=== PATIENT | male | born 1955 | race Caucasian/White ===

== ENCOUNTER 2022-03-11 11:35 | Outpatient (CLI) | payer MEDICARE, SELFPAY ==
[2022-03-11 11:41] VITALS: BMI 29.5
--- NOTE | 2022-03-11 11:41 | ECG_ITS ---
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 Interpretive Statements NAME OF STUDY: TREADMILL STRESS TEST INDICATION: Chest Pain, PROCEDURE: The baseline electrocardiogram showed normal sinus rhythm with normal ST-Ts normal CA and QRS duration. Possible old inferior wall IL.. At the baseline, the patient's blood pressure was 127/71 mm Hg with a heart rate of 72. The patient exercised for 5 minutes and 59 seconds on a standard Kevin protocol. Patient attained a maximum heart rate of 168 beats per minute(109% of the maximum predicted heart rate) with a blood pressure at the peak exercise of 177/92 mm Hg. the EKG during the second stage of the protocol showed episodes of nonsustained wide-complex tachycardias. The EKG at the peak exercise revealed wide-complex tachycardia suggesting ventricular tachycardia. The rhythm spontaneously converted to sinus tachycardia. Patient did not have any chest pain or any significant arrhythmis with the exercise During the recovery phase, there were no new changes. The rhythm gradually returned to normal sinus. Blood pressure at the end of the recovery phase was 153/85 mm Hg with a heart rate of 81 per minute. CONCLUSION: 1. Abnormal EKG response to treadmill exercise -exercise-induced wide-complex tachycardia, suggesting ventricular tachycardia. No arrhythmia related hemodynamic compromise. 2. No exercise-induced chest pain or syncopal episode 3. Slightly impaired exercise tolerance, attained a maximum of 7.0 METs Consider myocardial perfusion imaging or cardiac catheterization to further evaluate his symptoms Electronically Signed On 03-12-2022 8:15:19 CDT by Giuseppe Lauren M.D. [email or web address]
[2022-03-11 12:53] VITALS: BP 154/85; PULSE 90
== END 2022-03-11 11:36 | disposition home or self-care (01) ==
LOC: CDL 11:36
PROVIDERS: PCP Family Medicine; Visit Provider Family Medicine
DX: R07.9 Chest pain, unspecified (principal)
CPT/HCPCS: 93017

== ENCOUNTER → 2022-05-08 13:54 | Outpatient (BNVA) | payer MEDICARE, SELFPAY | PROVIDERS: PCP Family Medicine; Visit Provider Internal Medicine | DX: I10 Essential (primary) hypertension (principal); R94.39 Abnormal result of other cardiovascular function study; I47.2 Ventricular tachycardia; I49.1 Atrial premature depolarization; I49.3 Ventricular premature depolarization | CPT/HCPCS: 93005; 93229; 99204 ==

== ENCOUNTER 2022-05-28 06:11 | Outpatient (CLI) | payer MEDICARE, SELFPAY ==
--- NOTE | 2022-05-28 06:15 | USCV_ITS ---
Benjamin Pearson Age: 66 Gender: M : 1955 Exam Date: 05/28/2022 06:33 Ordering Phys: Shashi West M.D ([email or web address]) Technologist: Exam Location: [facility] [place] Indication: chest pain BP: 124 / 83 HR: 55 Rhythm: Sinus Technical Quality: Adequate MEASUREMENTS (Male / Female) Normal Values 2D ECHO LV Diastolic Diameter PLAX 3.2 cm 4.2 - 5.9 / 3.9 - 5.3 cm LV Systolic Diameter PLAX 2.8 cm IVS Diastolic Thickness 1.0 cm 0.6 - 1.0 / 0.6 - 0.9 cm IVS Systolic Thickness 1.5 cm LVPW Diastolic Thickness 1.1 cm 0.6 - 1.0 / 0.6 - 0.9 cm LVPW Systolic Thickness 1.2 cm LVOT Diameter 2.0 cm LV Ejection Fraction 2D Teich 9.6 % LV Ejection Fraction MOD 2C 43.7 % LV Ejection Fraction 2C AL 44.9 % LA Diameter 3.3 cm Aorta at Sinotubular Diameter 3.6 cm IVC Diameter 1.9 cm M-MODE Aortic Annulus Diameter 3.2 cm LA Ao Ratio MM 1.1 MV E Point Septal Separation 1.4 cm DOPPLER AV Peak Velocity 131.0 cm/s LVOT Peak Velocity 86.0 cm/s AV Area Cont Eq vti 2.3 cm squared AV Area Cont Eq pk 2.1 cm squared MV Area PHT 5.0 cm squared Mitral E to A Ratio 1.3 MV E' Velocity 45.0 cm/s Mitral E to MV E' Ratio 11.5 Mitral E to LV E' Lateral Ratio 11.5 Mitral E to LV E' Septal Ratio 11.7 TR Peak Velocity 151.0 cm/s TR Peak Gradient 9.1 mmHg TV Peak E Velocity 83.0 cm/s Right Atrial Pressure 3.0 mmHg Pulmonary Artery Systolic Pressu 12.1 mmHg PV Peak Velocity 104.0 cm/s FINDINGS Left Ventricle Normal left ventricular size. LV systolic function is normal with EF of 50-55%. No regional wall motion abnormalities. Right Ventricle The right ventricle is normal in size and function. Right Atrium The right atrium is normal in size. Left Atrium The left atrium is normal in size. Mitral Valve Structurally normal mitral valve without significant stenosis or prolapse. There is no mitral regurgitation. Aortic Valve Structurally normal aortic valve without significant sclerosis or stenosis. There is no aortic regurgitation. Tricuspid Valve Structurally normal tricuspid valve without significant stenosis. Trace tricuspid regurgitation. Insufficient TR jet to calculate RVSP Pulmonic Valve Not well-visualized Pericardium Normal pericardium without effusion. Aorta Normal ascending aorta dimension. IVC CONCLUSIONS LV systolic function is normal with EF 50 to 55%. Trace tricuspid regurgitation. No comparison studies are available Shashi West MD (Electronically Signed) Final Date: 06 June 2022 10:55 S
== END 2022-05-28 06:12 | disposition home or self-care (01) ==
PROVIDERS: PCP Family Medicine; Visit Provider Internal Medicine
DX: I07.1 Rheumatic tricuspid insufficiency (principal); R06.02 Shortness of breath
CPT/HCPCS: 93306

== ENCOUNTER 2022-05-30 07:12 | Outpatient (CLI) | payer MEDICARE, SELFPAY ==
[2022-05-30 07:29] LABS: Basophils # 0.1 10^3/uL (0.0-0.1); Basophils % 1.7 %; Eosinophils # 0.2 10^3/uL (0.0-0.8); Eosinophils % 3.3 %; Hematocrit 46.6 % (42.0-52.0); Hemoglobin 16.7 g/dL (11.7-16.6); Lymphocytes # 2.3 10^3/uL (0.8-4.8); Lymphocytes % 32.9 %; Mean Corpuscular HGB Conc 35.8 g/dL (30.0-36.0); Mean Corpuscular Hemoglobin 32.7 pg (28.0-34.0); Mean Corpuscular Volume 91.2 fl (80-94); Mean Platelet Volume 10.3 fL (7.4-10.4); Monocytes # 0.6 10^3/uL (0.2-0.9); Monocytes % 9.3 %; Neutrophils # 3.63 10^3/uL (1.8-7.7); Neutrophils % 52.5 %; Nucleated Red Blood Cells % 0 %; Platelet Count 208 10^3/cmm (130-400); Red Blood Count 5.11 10^6/uL (4.1-5.3); Red Cell Distribution Width 13.2 % (12.1-15.1); White Blood Count 6.9 10^3/uL (4.0-10.0)
[2022-05-30 07:40] LABS: Prothrombin Time (Patient) 13.5 Seconds (12.0-15.1)
[2022-05-30 10:00] LABS: Anion Gap 13.2 (5-19); Blood Urea Nitrogen 8 mg/dL (8-23); Calcium 9.4 mg/dL (8.5-10.5); Carbon Dioxide 29 mmol/L (22-29); Chloride 102 mmol/L (98-107); Glomerular Filtration Rate 96.7 mL/min (90-130); Glucose 116 mg/dL (65-115); Osmolality Calculated 289 mOsm/kg (285-295); Potassium 4.2 mmol/L (3.5-5.1); Sodium 140 mmol/L (136-145)
== END 2022-05-30 07:13 | disposition home or self-care (01) ==
PROVIDERS: PCP Family Medicine; Visit Provider Internal Medicine
DX: R58 Hemorrhage, not elsewhere classified (principal); I10 Essential (primary) hypertension
CPT/HCPCS: 36415; 80048; 85025; 85610

== ENCOUNTER 2022-05-31 06:00 | Outpatient (CLI) | payer MEDICARE, SELFPAY ==
[2022-05-31] VITALS (35 sets, daily range): BP systolic 112–160; BP diastolic 78–111; PULSE 64–85; RESP 7–24; TEMP 36.7; O2SAT 91–96; BMI 30.8
[2022-05-31] MEDS: diphenhydrAMINE 50 mg Capsule PO (06:10)
--- NOTE | 2022-05-31 07:00 | XACV_ITS ---
Exam Room: 2 Ht: 180 cm Wt: 100 kg BSA: 2.27 m2 Gender: Male : 1955 Any Known Allergies: Penicillins Exam Priority: Routine Procedure(s): Procedure Description: Diagnostic procedure Procedure Description: Left Heart Catheterization Procedure Description: Coronary Angiography Procedure Description: Pressure Wire Diagnostic Cath Status: Elective Diagnostic Findings * Left Main has no disease. * Circumflex has no disease. * Mid Left Anterior Descending: mild 40% stenosis, TRISTA: 3 flow. * Mid Right Coronary Artery: moderate 50% stenosis, TRISTA: 3 flow. * Coronary angiography shows right dominance. * INDICATION: Chest pain/abnormal stress test. Interventional Findings * Procedure detail: We engaged RCA with JR4 guide catheter. IV heparin was administered to maintain ACT above 250 S. After normalization, IFR wire was advanced to distal RCA. IFR value of 1 was obtained. iFR wire was removed and final angiogram was obtained. We then turned our attention to LAD. We engaged left main artery with XB 3.0 guide catheter. After normalization, we advanced LAD to distal vessel. We obtained a value of 0.94 that was nonischemic. iFR wire was removed and final angiogram was obtained. Guide catheter was removed. Patient left the cath Well condition. Conclusions 1. There is moderate coronary artery disease with two vessel disease. IFR nonischemic for both RCA and LAD.. Recommendations * Aggressive risk factor modification. * Outpatient cardiology follow-up in 4 weeks. Interventional RX Recommendation: medical therapy and/or counseling Diagnostic RX Recommendation: medical therapy and/or counseling Pressures Phase:Rest AO : 98 / 71 ( 85 ) @ 9:03:00 AM 109 / 80 ( 93 ) @ 9:16:00 AM 117 / 84 ( 100 ) @ 9:25:00 AM Clinical Evaluation EBL: 5mL-10mL Procedural Details Procedure Consent Obtained. Pre-Procedure Time Out. Identified patient by full name and date of as verbalized by the patient/guarantor. Does the consent match the physician's order: Yes. Accurate & Complete Informed Consent: Yes. Inpatient/Outpatient History & Physical on Chart: Yes. If H&P is completed, is and addenduem needed: N/A; If yes, is the addendum complete: N/A. Visualize and Verify Site with Patient/Guarantor: N/A. Relevant Radiology Images available: Yes. The risks, benefits, and alternatives of sedation and/or procedure were discussed by physician. The patient agrees to continue. Procedure started. [facility] Clinical Fraility Score: 3: Managing Well. Clinical Leader Indications: Cardiac Arrhythmia. Chest Pain Symptom Assessment: Typical Angina Symptoms. Cardiovascular Instability: No. Correct patient, site and procedure confirmed by cath team. PERRLA. Strong, equal hand proration clerk bilaterally. Lungs clear x 5 lobes. IV Site on Arrival: 20 gauge in the right forearm. IV Fluids: 0.9% NaCl at KVO. 0 mL infused prior to cardiac cath rn. Pre Procedural Pulses: bilateral dorsalis pedis was 3+. Pre Procedural Pulses: bilateral posterior tibial was 3+. Pre Procedural Pulses: bilateral radial was 3+. Oxygen started at 2liters/min via nasal canula. right groin was prepped with chloroprep then draped in the usual sterile fashion. right radial was prepped with chloroprep then draped in the usual sterile fashion. Baseline sample Acquired. HR: 69 BPM. Physician notified. Patient's family unavailable. Physician arrived. Physician scrubbed in. Immediate Pre-Procedure Time Out. Correct Patient: Yes; Correct Procedure: Yes; Correct Site: Yes; Correct Patient Position: Yes; Correct Supplies: Yes; Dried Flammable Prep: Yes; Blood Products Available: N/A;. Lidocaine 1% infiltrated to the right radial. Arterial access obtained. A 5 grenadian TIG catheter in over wire. Multiple views taken of left coronary artery. Catheter redirected to the RCA, unable to cannulate. Catheter removed over the exchange glide wire. A 5 grenadian JR4 catheter in over the exchange glidewire. Multiple views taken of right coronary artery. Catheter removed over the exchange glidewire. 6 grenadian JR 4 guide catheter was inserted over the exchange glidewire. iFR guidewire was advanced through the guide catheter to lesion in the mid RCA. iFR measurements obtained of Mid RCA=1.0. Cine of the RCA performed. iFR wire out. Guide catheter out over the exchange glidewire. 6 grenadian XB 3.5 guide catheter was inserted over the exchange glidewire. iFR guidewire was advanced through the guide catheter to lesion in the mid LAD. iFR guidewire was advanced through the guide catheter to lesion in the mid LAD. iFR measurements obtained of Mid LAD=0.95. Cine of the LCA performed. iFR wire out. Guide catheter out over the standard wire. Dr. West scrubbed out. A TR Band was successful obtaining hemostatsis at the Right Radial artery insertion site. TR band placed. Hemostasis obtained. Post Procedure: Pulses reassessed and unchanged. PERRLA. Strong, equal hand proration clerk bilaterally. No VTE prophylaxis required. Medication's Wasted: Lidocaine 1% = 2 mL. Medication's Wasted: Heparin = 2000 units. Medication's Wasted: Nitro = 49.8 mg. Total IV fluids: 61 mL. Post-op diagnosis: Moderate Mid RCA and Mid LAD stenosis with normal iFR of both. Complications: none. Estimated blood loss: 5mL-10mL. Responsiveness - Normal response to verbal stimuli; alert and oriented, PERRLA. Airway - Unaffected, no intervention required; spontaneous ventilation. Circulation: W/N/L, pulses unchanged. Nausea/Vomiting: No. Procedure completed. Patient transferred by wheelchair to CPRU. Vital chart was stopped. Access Site Site: Right Radial artery Sheath Size: 6 Fr Hemostasis Method: TR Band Hemostasis Success: Successful Procedure Medications Start: 7:57 AM Stop: 7:57 AM Medication: Versed Amount: 1 mg Route: I.V. Start: 7:57 AM Stop: 7:57 AM Medication: Fentanyl Amount: 50 mcg Route: I.V. Start: 8:02 AM Stop: 8:02 AM Medication: Nitrogylcerin Amount: 200 mcg Route: I.A. Start: 8:02 AM Stop: 8:02 AM Medication: Versed Amount: 1 mg Route: I.V. Start: 8:12 AM Stop: 8:12 AM Medication: Heparin Amount: 3000 units Route: I.V. Start: 8:26 AM Stop: 8:26 AM Medication: Heparin Amount: 1000 units Route: I.V. Start: 8:26 AM Stop: 8:26 AM Medication: Versed Amount: 1 mg Route: I.V. Start: 8:03 AM Stop: 8:03 AM Medication: Heparin Amount: 5000 units Route: I.V. I, the attending physician, have reviewed and verified all procedure medications. Yes, all medications given per verbal order History/Risk Factors Hypertension: Yes Dyslipidemia: Yes Peripheral Arterial Disease (PAD): No Myocardial Infarction (AK): No Obesity: No Renal Disease: No Tobacco Use: Former Prior Interventions PCI: Yes CABG: No Valve Surgery: No Report Signatures Finalized by Shashi West MD on 06/14/2022 09:52 PM
--- NOTE | 2022-05-31 07:46 | W.PM.OPSUD ---
Surgery/Procedure H&P Update DATE OF PROCEDURE: May 31, 2022 DATE H&P PERFORMED: 05/08/22 H&P UPDATE INFORMATION: I have reviewed H&P completed within last 30 days, I have examined patient prior to procedure and No changes to prior documentation PREOP DIAGNOSIS: Abnormal stress test/ Exercise induced ventricular tachycardia PRIMARY INDICATION FOR PROCEDURE: Abnormal stress test/ Exercise induced ventricular tachycardia PLANNED PROCEDURE: Operation Date: 05/31/22 07:00 Proposed Procedures p Cardiac Catheterization(Left) - Shashi West M.D Possible percutaneous coronary intervention PATIENT REASSESSED PRIOR TO SEDATION, WITH NO CHANGE NOTED: Yes PHYSICAL EXAM: alert, oriented x 3, clear to auscultation bilaterally and regular rate & rhythm AIRWAY EVAL/ANESTHESIA PLAN: ASA III, Risks, benefits & alternatives of sedation and/or procedure discussed and Patient agrees to continue as planned ADDITIONAL INFORMATION: Moderate sedation
--- NOTE | 2022-05-31 08:40 | PC.NURSE ---
Received patient from recyclable products sorter at this time. Pt placed on bedside teletypesetter monitor. Pt is drowsy and oriented X 4. Denies pain. TR band to right radial artery, no signs of bleeding or hematoma. Radial pulse palpable. Pt educated on right arm restrictions, verbalized understanding. Family members at bedside.
--- NOTE | 2022-05-31 08:45 | PC.NURSE ---
Clarification of fluid orders Notified Dr. West via phone and received verbal orders to infuse NS 75ml/hr until discharged home.
--- NOTE | 2022-05-31 10:30 | PC.NURSE ---
1 ml air removed from right radial TR band. Site asymptomatic, no signs of bleeding or hematoma noted. Radial pulse palpable.
--- NOTE | 2022-05-31 10:40 | PC.NURSE ---
1 ml air removed from right radial TR band. Site asymptomatic, no signs of bleeding or hematoma noted. Radial pulse palpable.
--- NOTE | 2022-05-31 10:50 | PC.NURSE ---
2 ml air removed from right radial TR band. Site asymptomatic, no signs of bleeding or hematoma noted. Radial pulse palpable.
--- NOTE | 2022-05-31 10:55 | PC.NURSE ---
1 ml air removed from right radial TR band. Site asymptomatic, no signs of bleeding or hematoma noted. Radial pulse palpable.
--- NOTE | 2022-05-31 11:08 | PC.NURSE ---
2 ml air removed from right radial TR band. Site asymptomatic, no signs of bleeding or hematoma noted. Radial pulse palpable.
--- NOTE | 2022-05-31 11:20 | PC.NURSE ---
2 ml air removed from right radial TR band. Site asymptomatic, no signs of bleeding or hematoma noted. Radial pulse palpable.
--- NOTE | 2022-05-31 11:30 | PC.NURSE ---
Remaining 3ml air removed from right radial TR band, TR band deflated and left in place to monitor for bleeding. Site asymptomatic, no signs of bleeding or hematoma noted. Radial pulse palpable.
--- NOTE | 2022-05-31 11:45 | PC.NURSE ---
No signs of bleeding or hematoma noted. Deflated TR band removed. Bandaid placed over site.
--- NOTE | 2022-05-31 12:20 | PC.NURSE ---
Verbal discharge instructions with handout given to patient and , asked questions and eager to learn. verbalized understanding of instructions. Right radial bandaid clean, dry and intact. No observation of bleeding or hematoma.
--- NOTE | 2022-05-31 12:30 | PC.NURSE ---
Pt up to bathroom before discharge home. After bathroom use, nurse assessed radial site. Bandaid had trace amount of blood, on further assessment a quarter size hematoma noted to radial site under bandaid. Nurse applied firm pressure and reapplied TR band containing 9ml air.
--- NOTE | 2022-05-31 13:30 | PC.NURSE ---
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 TR band on w/9mls of air. radial pulse is palpable +3. pt denies any pain or tenderness at this time. no bleeding or hematoma noted at this time. will keep monitoring neurovascularly. 1 ml of air taken out from TR band.
--- NOTE | 2022-05-31 13:31 | PC.NURSE ---
Report called to KIARA Carrillo on [facility]sur for patient to finish recovery. Dr. West notified of hematoma and transfer to room 276-1 .
--- NOTE | 2022-05-31 13:45 | PC.NURSE ---
2 ml of air out from tr band
--- NOTE | 2022-05-31 14:15 | PC.NURSE ---
2 ml of air removed from tr band
--- NOTE | 2022-05-31 14:35 | PC.NURSE ---
2 ml of air taken out from TR band No bleeding or new hematoma noted on right wrist. radial pulse is palpable +2.
--- NOTE | 2022-05-31 15:20 | PC.NURSE ---
2 ml of air taken out
--- NOTE | 2022-05-31 16:13 | PC.NURSE ---
Discharge to home Applied 2x2 dressing and transparent dressing on his right wrist. pt went to the bathroom prior to DC. recheck pt's right wrist and no hematoma, swelling or bleeding noted on right wrist. post angiogram home care instructions discuss to pt such as activity, wound care and what to do at home. pt verbalizes understanding. care note provided to pt. leslie called for his new Rx.
== END 2022-05-31 16:20 | disposition home or self-care (01) ==
LOC: CCL 11:12 → MEDSURG 13:41
PROVIDERS: PCP Family Medicine; Visit Provider Internal Medicine
DX: I25.10 Atherosclerotic heart disease of native coronary artery without angina pectoris (principal); R94.39 Abnormal result of other cardiovascular function study; I47.2 Ventricular tachycardia; I10 Essential (primary) hypertension; E78.5 Hyperlipidemia, unspecified; Z87.891 Personal history of nicotine dependence; E78.2 Mixed hyperlipidemia; Z79.82 Long term (current) use of aspirin
CPT/HCPCS: 93454; 99152; 99153; C1769; C1887; C1894; J1644; J2250; J3010; J3490; J7030; Q0163; Q9967

== ENCOUNTER → 2022-06-06 10:25 | Outpatient (BNVA) | payer MEDICARE, SELFPAY | PROVIDERS: PCP Family Medicine; Visit Provider Nurse Practitioner Family | DX: I25.10 Atherosclerotic heart disease of native coronary artery without angina pectoris (principal); Z87.891 Personal history of nicotine dependence | CPT/HCPCS: 36415; 80048; 99213 ==

== ENCOUNTER → 2022-06-28 09:55 | Outpatient (BNVA) | payer MEDICARE, SELFPAY | PROVIDERS: PCP Family Medicine; Visit Provider Internal Medicine Cardiovascular Disease | DX: I25.10 Atherosclerotic heart disease of native coronary artery without angina pectoris (principal); R94.39 Abnormal result of other cardiovascular function study; I10 Essential (primary) hypertension; Z87.891 Personal history of nicotine dependence | CPT/HCPCS: 99213; 99214 ==

== ENCOUNTER → 2022-09-17 12:48 | Outpatient (BNVA) | payer MEDICARE, SELFPAY | PROVIDERS: PCP Family Medicine; Visit Provider Podiatrist Foot & Ankle Surgery | DX: G57.63 Lesion of plantar nerve, bilateral lower limbs (principal) | CPT/HCPCS: 73630; 99204 ==

== ENCOUNTER → 2022-10-28 07:41 | Outpatient (BNVA) | payer MEDICARE, SELFPAY | PROVIDERS: PCP Family Medicine; Visit Provider Podiatrist Foot & Ankle Surgery | DX: G57.63 Lesion of plantar nerve, bilateral lower limbs (principal) | CPT/HCPCS: 99213 ==

== ENCOUNTER → 2023-01-03 10:30 | Outpatient (BNVA) | payer MEDICARE, SELFPAY | PROVIDERS: PCP Family Medicine; Visit Provider Internal Medicine | DX: I10 Essential (primary) hypertension (principal); R94.39 Abnormal result of other cardiovascular function study; I47.20 Ventricular tachycardia, unspecified; Z87.891 Personal history of nicotine dependence | CPT/HCPCS: 99214 ==

== ENCOUNTER → 2023-07-04 09:21 | Outpatient (BNVA) | payer MEDICARE, SELFPAY | PROVIDERS: PCP Family Medicine; Visit Provider Internal Medicine | DX: I10 Essential (primary) hypertension (principal); I25.10 Atherosclerotic heart disease of native coronary artery without angina pectoris; I47.20 Ventricular tachycardia, unspecified; Z87.891 Personal history of nicotine dependence | CPT/HCPCS: 99214 ==

== ENCOUNTER → 2024-06-28 11:52 | Outpatient (BNVA) | payer MEDICARE, SELFPAY | PROVIDERS: PCP Family Medicine; Visit Provider Internal Medicine | DX: I10 Essential (primary) hypertension (principal); I25.10 Atherosclerotic heart disease of native coronary artery without angina pectoris; I47.20 Ventricular tachycardia, unspecified; Z87.891 Personal history of nicotine dependence | CPT/HCPCS: 99214 ==

== ENCOUNTER → 2025-06-27 14:05 | Outpatient (BNVA) | payer MEDICARE, SELFPAY | PROVIDERS: PCP Family Medicine; Visit Provider Internal Medicine | DX: I25.10 Atherosclerotic heart disease of native coronary artery without angina pectoris (principal); I10 Essential (primary) hypertension; Z87.891 Personal history of nicotine dependence | CPT/HCPCS: 99214 ==

== ENCOUNTER → 2025-08-15 11:42 | Outpatient (BNVA) | payer MEDICARE, SELFPAY | PROVIDERS: PCP Family Medicine; Visit Provider Dermatology | DX: L81.4 Other melanin hyperpigmentation (principal); L57.8 Other skin changes due to chronic exposure to nonionizing radiation; D22.5 Melanocytic nevi of trunk; C44.519 Basal cell carcinoma of skin of other part of trunk; D48.5 Neoplasm of uncertain behavior of skin | CPT/HCPCS: 11102; 17262; 99203 ==

== ENCOUNTER → 2025-09-07 08:18 | Outpatient (BNVA) | payer MEDICARE, SELFPAY | PROVIDERS: PCP Family Medicine; Visit Provider Dermatology | DX: C44.612 Basal cell carcinoma of skin of right upper limb, including shoulder (principal) | CPT/HCPCS: 11603; 12032 ==